=== PATIENT | female | born 1960 | race Caucasian/White ===

== ENCOUNTER 2017-07-16 12:49 | Emergency (ER) | payer BC ==
--- NOTE | 2017-07-16 13:42 | EDM.PDOC ---
ED HPI GENERAL MEDICAL PROBLEM - General Chief Complaint: ENT Problem Stated Complaint: sore inside the nose Time Seen by Provider: 07/16/17 13:20 Source of Information: Reports: Patient History Limitations: Reports: No Limitations - History of Present Illness INITIAL COMMENTS - FREE TEXT/NARRATIVE: Yuni presents today with complaints of painful sore to left nare for three days with edema to left nose and cheek. She denies fever, chills, nausea. 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 , Endocrine/Metabolic History: Reports: Hypothyroidism - Past Surgical History HEENT Surgical History: Reports: Tonsillectomy GI Surgical History: Reports: Cholecystectomy Social & Family History - Tobacco Use Smoking Status *Q: Current Every Day Smoker Years of Tobacco use: 40 Packs/Tins Daily: 0.5 - Caffeine Use Caffeine Use: Reports: Coffee, Soda - Recreational Drug Use Recreational Drug Use: No ED ROS ENT - Review of Systems Review Of Systems: See Below Constitutional: Denies: Fever, Chills, Malaise, Weakness HEENT: Reports: Nose Pain, Other (sore to left nare, edema, recent removal of nasal hair on Monday, patient not sure if she nicked her left nare or not. ). Denies: Ear Pain Respiratory: Reports: No Symptoms Cardiovascular: Reports: No Symptoms : Reports: No Symptoms Musculoskeletal: Reports: No Symptoms Skin: Denies: Rash, Erythema Neurological: Reports: No Symptoms Psychiatric: Reports: No Symptoms Hematologic/Lymphatic: Reports: No Symptoms Immunologic: Reports: No Symptoms ED EXAM, ENT - Physical Exam Exam: See Below Text/Narrative:: Yuni is an alert and oriented 57 year old female with complaints of left nare pain and edema. She was trimming her nasal hairs this past Monday, is not sure if she nicked the inside of her nose or not. She developed a pimple, pain and edema to nose and left bridge of nose. Exam Limited By: No Limitations General Appearance: Alert, WD/WN, No Apparent Distress Eye Exam: Bilateral Eye: EOMI, Normal Inspection, PERRL Ears: Normal External Exam, Normal Canal, Hearing Grossly Normal, TM Dullness. No: Mastoid Swelling, Mastoid Tenderness, TM Bulging, TM Erythema, TM Blood, TM Perforation Nose: Nasal Swelling, Nasal Tenderness, Other (Slight edema to left nose/nare). No: Nasal Discharge, Foreign Body, Septal Hematoma, Active Bleeding, Dried Blood Mouth/Throat: Normal Inspection, Normal Gums, Normal Lips, Normal Oropharynx, Normal Teeth Head: Atraumatic, Normocephalic Neck: Normal Inspection, Supple, Non-Tender, Full Range of Motion. No: Lymphadenopathy (R), Lymphadenopathy (L) Respiratory/Chest: No Respiratory Distress, Lungs Clear, Normal Breath Sounds, No Accessory Muscle Use, Chest Non-Tender Cardiovascular: Normal Peripheral Pulses, Regular Rate, Rhythm, No Edema, No Murmur Back: Normal Inspection, Full Range of Motion. No: CVA Tenderness (R), CVA Tenderness (L) Extremities: Normal Inspection, Normal Range of Motion, Non-Tender, No Pedal Edema, Normal Capillary Refill Neurological: Alert, Oriented, Normal Cognition, No Motor/Sensory Deficits Psychiatric: Normal Affect, Normal Mood Skin: Warm, Dry, Normal Color, No Rash Lymphatic: No Adenopathy Course - Vital Signs Last Recorded V/S: Last Vital Signs Temp 36.3 C 07/16/17 13:04 Pulse 93 07/16/17 13:46 Resp 18 07/16/17 13:04 BP 157/100 H 07/16/17 13:46 Pulse Ox 96 07/16/17 13:04 Departure - Departure Time of Disposition: 13:55 Disposition: Home, Self-Care 01 Condition: Good Clinical Impression: Folliculitis nares perforans, Cellulitis of sidewall of nose - Discharge Information Referrals: Artie Darling MD [Primary Care Provider] - Forms: ED Department Discharge Additional Instructions: You have a localized area of edema and redness to the left nare and nose. You can use mupirocin ointment, a small amount to the left nare twice per day. You can take Cephalexin 1000mg PO twice per day for 5 days. Do not pick or use anything else in the nose. You can apply ice packs to the swollen area for comfort if you wish. Ibuprofen and acetaminophen can help with pain. Follow up with your primary provider in 7 days for a recheck. Return for any worsening, issues of concerns. - Assessment/Plan Assessment:: Folliculitis nares perforans Cellulitis of sidewall of nose Plan: Localized area of edema and redness to the left nare and nose without fluctuance. Yuni can use mupirocin ointment, a small amount to the left nare twice per day. She can take Cephalexin 1000mg PO twice per day for 5 days. Do not pick or use anything else in the nose. She can apply ice packs to the swollen area for comfort if you wish. Ibuprofen and acetaminophen can help with pain. Follow up with primary provider in 7 days for a recheck. Return for any worsening, issues of concerns.
[2017-07-16 13:47] VITALS: BP 157/100
== END 2017-07-16 14:00 | disposition home or self-care (01) ==
LOC: JP.ED 12:49
DX: J34.0 Abscess, furuncle and carbuncle of nose (principal); L73.8 Other specified follicular disorders; E03.9 Hypothyroidism, unspecified; F17.210 Nicotine dependence, cigarettes, uncomplicated; Z90.49 Acquired absence of other specified parts of digestive tract; Z98.890 Other specified postprocedural states; Z79.899 Other long term (current) drug therapy
CPT/HCPCS: 99283